=== PATIENT | female | born 1975 | race Caucasian/White ===

== ENCOUNTER 2019-04-06 14:30 | Emergency (ER) | payer MEDICAID ==
[~2019-04-06] VITALS: Ht 167.6 cm; Wt 73.0 kg
[2019-04-06 15:09] LABS: EOSINOPHILS % 1.2 % (0.0-5.0); HEMATOCRIT. 36.4 % (36.0-48.0); HEMOGLOBIN. 11.7 g/dL (12.0-16.0); LYMPHOCYTES % 27.7 % (20.0-50.0); MEAN CORPUSCULAR HEMOGLOBIN 26.5 pg (28.0-32.0); MEAN CORPUSCULAR VOLUME 82.1 fL (81.0-99.0); MEAN PLATELET VOLUME 8.2 fl (7.4-10.4); NEUTROPHILS % 62.1 % (40.0-76.0); PLATELET 267 x1000/uL (130-400); RED BLOOD CELL COUNT 4.43 mill/uL (4.2-5.4); RED CELL DISTRIBUTION WIDTH 16.4 % (11.6-14.6)
[2019-04-06 15:12] LABS: CHLORIDE 109 mEq/L (98-107)
[2019-04-06 19:19] VITALS: BP 104/75
== END 2019-04-06 19:22 | disposition home or self-care (01) ==
LOC: ER 14:30 → CANBEDREQ 22:44
DX: R07.89 Other chest pain (principal); R79.1 Abnormal coagulation profile; D64.9 Anemia, unspecified; R03.0 Elevated blood-pressure reading, without diagnosis of hypertension
CPT/HCPCS: 36415; 71045; 78582; 80053; 81025; 83880; 84484; 85025; 85379; 93005; 99284; A9540; A9558